=== PATIENT | male | born 1970 | race Caucasian/White ===

== ENCOUNTER 2021-03-04 18:40 | Emergency (ER) | payer OTHER ==
[2021-03-04 19:17] LABS: BASOPHIL 0.3 % (0-2); EOSINOPHIL 2.4 % (0-5); HCT 38.4 % (42.0-52.0); HGB 13.3 g/dl (13.2-18.0); LYMPHOCYTE 26.4 % (15-48); MCH 30.2 pg (25.0-31.0); MCHC 34.6 g/dL (32.0-36.0); MCV 87.3 fL (78.0-100.0); MONOCYTE 8.4 % (0-12); MPV 10.2 fL (6.0-9.5); NEUTROPHIL 62.3 % (41-80); NRBC 0; PLT 216 K/uL (150-400); WBC 10.5 K/uL (4.0-10.5)
[2021-03-04 19:28] LABS: INR 1.01 (0.9-1.2); PROTHROMBIN TIME 12.6 SECONDS (11.4-13.6); PTT 27.7 SECONDS (22.2-34.7)
[2021-03-04 19:37] LABS: ALBUMIN 3.8 g/dL (3.4-5.0); BILIRUBIN - TOTAL 0.4 mg/dL (0.2-1.0); BUN/CREAT RATIO (CALC) 16.2 RATIO; CREATININE 0.8 mg/dL (0.67-1.17); GLOBULIN (CALCULATION) 3.4 g/dL; POTASSIUM 3.6 mmol/L (3.5-5.1); TOTAL PROTEIN 7.2 g/dL (6.4-8.2)
[2021-03-04] MEDS ORDERED: DICLOFENAC SODI75 MG PO (20:11)
== END 2021-03-04 20:26 | disposition home or self-care (01) ==
LOC: FER 18:40
PROVIDERS: Emergency Medicine
DX: R07.89 Other chest pain (principal); R05 Cough; F17.290 Nicotine dependence, other tobacco product, uncomplicated
CPT/HCPCS: 36415; 71046; 80053; 84484; 85025; 85610; 85730; 93005

== ENCOUNTER 2021-03-18 11:40 | Emergency (ER) | payer OTHER ==
[~2021-03-18 11:40] MED LIST: DICLOFENAC SODI75 MG PO
[2021-03-18] MEDS ORDERED: VIBRAMYCIN100 MG PO (15:45)
[2021-03-18] MEDS ORDERED: TESSALON PERLE100 M1 PO (15:45)
[2021-03-18] MEDS ORDERED: MUCINEX D ER 11 EACH PO (15:45)
== END 2021-03-18 11:55 | disposition home or self-care (01) ==
LOC: FER 11:40
DX: J18.9 Pneumonia, unspecified organism (principal); J32.9 Chronic sinusitis, unspecified; F17.210 Nicotine dependence, cigarettes, uncomplicated; Z20.822 Contact with and (suspected) exposure to COVID-19
CPT/HCPCS: 70486; 71250; U0002